=== PATIENT | female | born 1960 | race Caucasian/White ===

== ENCOUNTER 2018-01-22 21:25 | Emergency (ER) | payer BC ==
[2018-01-22 21:40] VITALS: PULSE 101
[2018-01-22] MEDS ORDERED: Sodium Chloride 0.9% 1000 ML 1,000 ML IV STA (21:45)
--- NOTE | 2018-01-22 21:51 | ERPHSYRPT ---
- History of Present Illness Time Seen by Provider: 01/22/18 21:41 Source: patient Exam Limitations: no limitations Patient Subjective Stated Complaint: Pt arrives to ER with urinary pressure/ frequency/dysuria for 1 week. Is normally able to self treat UTI with drinking lots of water. Developed back lower right back pain Saturday, was seen at Urgent care and started Macrobid Saturday. Developed fever yesterday morning as high as 101.8F. Has been treating fever with Aleve. Pt also taking Azo and increasing fluid intake, states pressure and dysuria are resolved, frequency is still present but relates to increased fluid intake. Triage Nursing Assessment: see above Physician History: Pt started c/o dysuria about one week ago, she was seen at an urgent care clinic 2 days ago, started on PO Macrobid. She developed chills and fever yesterday, temp. was 102.7F today, she took Advil at 19:30 PM. She denies abdominal or back pain, nausea, vomiting, diarrhea, other complaints, than generalized body aches and fever, dysuria. She went back to the urgent care clinic and was directed here. Timing/Duration: week(s) (1) Activites at Onset: none Quality: aching Onset Location: other (denies) Pain Radiation: none Severity of Pain-Max: none Severity of Pain-Current: none Prior abdominal problems: UTI Sexual intercourse history: non-contributory Modifying Factors: Improves With: nothing Associated Symptoms: fever, chills, urinary frequency Allergies/Adverse Reactions: sulfamethoxazole [From Bactrim] Allergy (Verified 01/22/18 21:40) Vomiting trimethoprim [From Bactrim] Allergy (Verified 01/22/18 21:40) Vomiting Home Medications: Nitrofurantoin Monohyd/M-Cryst [Nitrofurantoin [place]-Mcr 100 mg] 100 mg PO BID [History] - Review of Systems Constitutional: Fever, Chills Genitourinary Symptoms: Dysuria, Frequency All Other Systems: Reviewed and Negative - Past Medical History Pertinent Past Medical History: Yes - Past Surgical History Past Surgical History: Yes - Social History Smoking Status: Never smoker Exposure to second hand smoke: No Drug Use: none Patient Lives Alone: No - Female History Hx Now: No - Nursing Vital Signs Nursing Vital Signs: Initial Vital Signs Temperature 99.2 F 01/22/18 21:30 Pulse Rate 101 H 01/22/18 21:30 Respiratory Rate 18 01/22/18 21:30 Blood Pressure 133/77 01/22/18 21:30 O2 Sat by Pulse Oximetry 97 01/22/18 21:30 Pain Scale Pain Intensity 0 - Physical Exam General Appearance: no apparent distress Eye Exam: eyes nml inspection Ears, Nose, Throat Exam: normal ENT inspection, moist mucous membranes Neck Exam: normal inspection, non-tender, supple, No JVD Respiratory Exam: normal breath sounds, lungs clear, airway intact Cardiovascular Exam: regular rate/rhythm, normal heart sounds, normal peripheral pulses, No murmur Gastrointestinal/Abdomen Exam: soft, normal bowel sounds, No tenderness, No distention, No mass, No guarding, No rebound, No organomegaly Pelvic Exam: not done Back Exam: normal inspection, No CVA tenderness Extremity Exam: normal inspection, No calf tenderness, No pedal edema Neurologic Exam: alert, oriented x 3, normal mood/affect Skin Exam: normal color, warm, dry, No rash Lymphatic Exam: No adenopathy SpO2 Interpretation: normal SpO2: 97 Oxygen Delivery: Room Air - Course Nursing assessment & vital signs reviewed: Yes Ordered Tests: Active Orders 24 hr Category Date Time Status IV Insertion STAT Care 01/22/18 21:45 Active BLOOD CULTURE Stat Lab 01/22/18 22:00 Received CBC W DIFF Stat Lab 01/22/18 21:45 Completed CMP Stat Lab 01/22/18 21:45 Completed CULTURE,URINE Stat Lab 01/22/18 22:30 Received Lactic Acid Stat Lab 01/22/18 21:45 Completed UA W/ MICROSCOPIC Stat Lab 01/22/18 22:30 Completed Medication Summary Generic Name Dose Route Start Last Admin Trade Name Freq PRN Reason Stop Dose Admin Ceftriaxone Sodium/Dextrose 1 g in 50 mls @ 100 mls/hr 01/22/18 22:36 22:43 Rocephin 1 Gm-D5w 50 Ml Bag IV 01/22/18 23:05 100 mls/hr STAT STA 100 mls/hr Administration Discontinued Medications Generic Name Dose Route Start Last Admin Trade Name Freq PRN Reason Stop Dose Admin Sodium Chloride 1,000 mls @ 999 mls/hr 01/22/18 21:45 01/22/18 21:57 Sodium Chloride 0.9% 1000 Ml IV 01/22/18 22:45 999 mls/hr .Q1H1M STA Administration Sodium Chloride Confirm 01/22/18 21:54 Sodium Chloride 0.9% 1000 Ml Administered 01/22/18 21:55 Dose 1,000 mls @ ud .ROUTE .STK-MED ONE Ceftriaxone Sodium/Dextrose Confirm 01/22/18 22:39 Rocephin 1 Gm-D5w 50 Ml Bag Administered 01/22/18 22:40 Dose 1 g in 50 mls @ ud IV .STK-MED ONE Lab/Rad Data: Laboratory Result Diagrams 01/22/18 21:45 01/22/18 21:45 Laboratory Results 01/22/18 01/22/18 01/22/18 Range/Units 22:30 21:45 21:45 WBC (4.0-10.5) K/mm3 RBC (4.1-5.4) M/mm3 Hgb (12.0-16.0) gm/dl Hct (35-47) % MCV (78-100) fl MCH (26-32) pg MCHC (32-36) g/dl RDW (11.5-14.0) % Plt Count (150-450) K/mm3 MPV (6-9.5) fl Gran % (36.0-66.0) % Eos # (Auto) (0-0.5) Absolute Lymphs (auto) (1.0-4.6) Absolute Monos (auto) (0.0-1.3) Lymphocytes % (24.0-44.0) % Monocytes % (0.0-12.0) % Eosinophils % (0.00-5.0) % Basophils % (0.0-0.4) % Absolute Granulocytes (1.4-6.9) Basophils # (0-0.4) Sodium 138 (137-145) mmol/L Potassium 3.8 (3.5-5.1) mmol/L Chloride 100 (98-107) mmol/L Carbon Dioxide 29 (22-30) mmol/L Anion Gap 13.8 (5-15) MEQ/L BUN 13 (7-17) mg/dL Creatinine 1.02 (0.52-1.04) mg/dL Estimated GFR 59.2 ML/MIN Glucose 108 H (74-106) mg/dL Lactic Acid 0.6 (0.4-2.0) Calcium 9.9 (8.4-10.2) mg/dL Total Bilirubin 0.60 (0.2-1.3) mg/dL AST 25 (14-36) U/L ALT 13 (0-35) U/L Alkaline Phosphatase 90 (38-126) U/L Serum Total Protein 7.1 (6.3-8.2) g/dL Albumin 4.1 (3.5-5.0) g/dL Ur Collection Type CLEAN CATCH Urine Color YELLOW (YELLOW) Urine Appearance CLEAR (CLEAR) Urine pH 7.0 (5-6) Ur Specific [place] 1.005 (1.005-1.025) Urine Protein NEGATIVE (Negative) Urine Ketones SMALL (NEGATIVE) Urine Blood TRACE NON-HEM (0-5) Juan Luis/ul Urine Nitrite POSITIVE (NEGATIVE) Urine Bilirubin NEGATIVE (NEGATIVE) Urine Urobilinogen NORMAL (0-1) mg/dL Ur Leukocyte Esterase NEGATIVE (NEGATIVE) Urine Microscopic RBC 2-5 (0-2) /HPF Urine Microscopic WBC 0-2 (0-5) /HPF Ur Epithelial Cells FEW (FEW) /HPF Urine Bacteria RARE (NEGATIVE) /HPF Urine Culture Reflexed YES (NO) Urine Glucose NEGATIVE (NEGATIVE) mg/dL Specimen Received 01/22/18 2230 01/22/18 Range/Units 21:45 WBC 8.9 (4.0-10.5) K/mm3 RBC 3.97 L (4.1-5.4) M/mm3 Hgb 12.0 (12.0-16.0) gm/dl Hct 36.3 (35-47) % MCV 91.4 (78-100) fl MCH 30.2 (26-32) pg MCHC 33.1 (32-36) g/dl RDW 13.9 (11.5-14.0) % Plt Count 163 (150-450) K/mm3 MPV 9.6 H (6-9.5) fl Gran % 68.3 H (36.0-66.0) % Eos # (Auto) 0.03 (0-0.5) Absolute Lymphs (auto) 1.63 (1.0-4.6) Absolute Monos (auto) 1.14 (0.0-1.3) Lymphocytes % 18.4 L (24.0-44.0) % Monocytes % 12.8 H (0.0-12.0) % Eosinophils % 0.3 (0.00-5.0) % Basophils % 0.2 (0.0-0.4) % Absolute Granulocytes 6.06 (1.4-6.9) Basophils # 0.02 (0-0.4) Sodium (137-145) mmol/L Potassium (3.5-5.1) mmol/L Chloride (98-107) mmol/L Carbon Dioxide (22-30) mmol/L Anion Gap (5-15) MEQ/L BUN (7-17) mg/dL Creatinine (0.52-1.04) mg/dL Estimated GFR ML/MIN Glucose (74-106) mg/dL Lactic Acid (0.4-2.0) Calcium (8.4-10.2) mg/dL Total Bilirubin (0.2-1.3) mg/dL AST (14-36) U/L ALT (0-35) U/L Alkaline Phosphatase (38-126) U/L Serum Total Protein (6.3-8.2) g/dL Albumin (3.5-5.0) g/dL Ur Collection Type Urine Color (YELLOW) Urine Appearance (CLEAR) Urine pH (5-6) Ur Specific [place] (1.005-1.025) Urine Protein (Negative) Urine Ketones (NEGATIVE) Urine Blood (0-5) Juan Luis/ul Urine Nitrite (NEGATIVE) Urine Bilirubin (NEGATIVE) Urine Urobilinogen (0-1) mg/dL Ur Leukocyte Esterase (NEGATIVE) Urine Microscopic RBC (0-2) /HPF Urine Microscopic WBC (0-5) /HPF Ur Epithelial Cells (FEW) /HPF Urine Bacteria (NEGATIVE) /HPF Urine Culture Reflexed (NO) Urine Glucose (NEGATIVE) mg/dL Specimen Received - Progress Progress: improved Air Movement: good Progress Note: 01/22/18 23:02 I discussed our results with patient and her , she has been afebrile, stable, denies pain or nausea. She is being discharged instructed to rest x 2-3 days, drink plenty of fluids, follow up with her physician, and return if severe pain, vomiting, fever> 102 F. She was administered 1 g Rocephine iv, and discharged on PO Keflex x 7 days. Blood Culture(s) Obtained: Yes Antibiotics given: Yes Counseled pt/family regarding: lab results, diagnosis, need for follow-up - Departure Time of Disposition: 23:03 Departure Disposition: Home Clinical Impression: UTI (urinary tract infection) Qualifiers: Urinary tract infection type: site unspecified Hematuria presence: without hematuria Qualified Code(s): N39.0 - Urinary tract infection, site not specified Condition: Stable Critical Care Time: No Referrals: WILLIAN VEGAS FNP [Primary Care Provider] - Instructions: Urinary Tract Infection, Adult (DC) Additional Instructions: Rest x 2-3 days, drink plenty of fluids, follow up with your doctor in 2-3 days , return if severe pain, vomiting, fever> 103 F! Prescriptions: Cephalexin Mh 500 mg [Keflex 500 mg] 500 mg PO Q6H #28 capsule
[2018-01-22] MEDS ORDERED: Sodium Chloride 0.9% 1000 ML 1,000 ML ONE (21:54)
[2018-01-22 21:59] LABS: BASOPHIL % 0.2 % (0.0-0.4); Basophil (Absolute #) 0.02 (0-0.4); Eosinophil % 0.3 % (0.00-5.0); Eosinophil (Absolute #) 0.03 (0-0.5); Granulocyte Absolute (ANC) 6.06 (1.4-6.9); Granulocytes % 68.3 % (36.0-66.0); Hematocrit 36.3 % (35-47); Lymphocyte (Absolute #) 1.63 (1.0-4.6); Lymphocytes % 18.4 % (24.0-44.0); Mean Cell Volume 91.4 fl (78-100); Mean Corpuscular Hemoglobin 30.2 pg (26-32); Mean Corpuscular Hgb Concent. 33.1 g/dl (32-36); Mean Platelet Volume 9.6 fl (6-9.5); Monocyte (Absolute #) 1.14 (0.0-1.3); Monocytes % 12.8 % (0.0-12.0); Platelet Count 163 K/mm3 (150-450); Red Blood Count 3.97 M/mm3 (4.1-5.4); Red Cell Distribution Width 13.9 % (11.5-14.0); White Blood Count 8.9 K/mm3 (4.0-10.5)
[2018-01-22 22:15] LABS: ALBUMIN 4.1 g/dL (3.5-5.0); ANION GAP 13.8 MEQ/L (5-15); BILIRUBIN,TOTAL 0.6 mg/dL (0.2-1.3); Calcium 9.9 mg/dL (8.4-10.2); Creatinine 1 1.02 mg/dL (0.52-1.04); Potassium 3.8 mmol/L (3.5-5.1); Total Protein 7.1 g/dL (6.3-8.2)
[2018-01-22] MEDS ORDERED: ROCEPHIN 1 Gm-D5w 50 ml Bag** 1 G/50 ML IVPB IV STA (22:36)
[2018-01-22] MEDS ORDERED: ROCEPHIN 1 Gm-D5w 50 ml Bag** 1 G/50 ML IVPB IV ONE (22:39)
[2018-01-22 22:53] LABS: Appearance CLEAR (CLEAR); Bilirubin NEGATIVE (NEGATIVE); Blood TRACE NON-HEM Ery/ul (0-5); Glucose NEGATIVE (NEGATIVE); Ketones SMALL (NEGATIVE); Leukocyte Esterase NEGATIVE (NEGATIVE); Nitrite POSITIVE (NEGATIVE); Protein,Urine Dip NEGATIVE (Negative); Specific Gravity 1.005 (1.005-1.025); Urobilinogen NORMAL mg/dL (0-1)
[2018-01-22 22:54] LABS: Bacteria RARE /HPF (NEGATIVE); Epithelial Cells FEW /HPF (FEW); WBC 0-2 /HPF (0-5)
[2018-01-22 23:17] VITALS: BP 99/68; O2SAT 95
== END 2018-01-22 23:17 | disposition home or self-care (01) ==
LOC: ED 21:25
DX: N39.0 Urinary tract infection, site not specified (principal)
CPT/HCPCS: 36000; 36415; 80053; 81000; 83605; 85025; 87040; 87086; 96360; 96365; 96374; 96375; 99284; J0696

== ENCOUNTER 2018-12-29 09:09 | Day surgery (SDC) | payer BC ==
--- NOTE | 2018-12-29 07:49 | HP ---
DATE OF SURGERY: 12/29/2018 HISTORY OF PRESENT ILLNESS: The patient is a 58 year-old with no prior colonoscopy, no bloody stools. Family history is negative for inflammatory bowel disease or colon cancer. No pain. There is question whether she had a positive Cologuard but she has not had a prior colonoscopy so she is due for a screening colonoscopy for evaluation. PAST MEDICAL HISTORY: She denies any chronic illnesses. PAST SURGICAL HISTORY: Right ovary removed in the past. MEDICATIONS: None. ALLERGIES: BACTRIM. FAMILY HISTORY: Negative. SOCIAL HISTORY: No smoking or alcohol abuse. REVIEW OF SYSTEMS: Fourteen systems reviewed per admission assessment. No chest pain or palpitations, other systems negative or noncontributory as above and per preadmission questionnaire. PHYSICAL EXAMINATION: GENERAL: No acute distress. HEENT: Sclerae nonicteric. NECK: No JVD. CHEST: Equal excursion, nonlabored breathing. CVS: Regular rate and rhythm. ABDOMEN: Soft. No peritoneal signs. EXTREMITIES: No significant edema. NEURO: Alert, oriented, moving extremities symmetrically. No gross motor deficits noted. RECTAL: Deferred timed to endoscopy exam. IMPRESSION: Need for screening colonoscopy. I feel the patient is a candidate. We explained all the above procedure risks but not limited to bleeding or infection, risk of bowel injury or perforation possibly requiring open procedure, risk of missed or nondiagnosis or incomplete exam possibly requiring barium enema, other studies or procedures, general risk of anesthesia or sedation, risk of bowel prep, postoperative risk of nausea or cramping but not limited to. She understands and agrees to the planned procedure, will proceed with outpatient screening colonoscopy.
[2018-12-29] MEDS ORDERED: Lactated Ringers 1,000 ML IV ONE ×2 (09:29→11:55)
[2018-12-29] MEDS ORDERED: Lactated Ringers 1,000 ML IV SCH (09:30)
[2018-12-29] MEDS ORDERED: MEFOXIN 2 GM PREMIX** 2 GM/50 ML ML IV SCH (10:00)
[2018-12-29] MEDS ORDERED: DIPRIVAN 200 MG/20 ML IV ONE ×2 (11:44→11:53)
[2018-12-29 13:14] VITALS: BP 115/76; PULSE 71; O2SAT 100
--- NOTE | 2018-12-29 13:34 | OP ---
SURGERY DATE/TIME: 12/29/2018 1148 PREOPERATIVE DIAGNOSES: 1) Need for screening colonoscopy. 2) Question of positive Cologuard. POSTOPERATIVE DIAGNOSES: 1) Small raised lesion versus early polyp, hyperplastic lesion in the rectum. 2) Raised lesion ascending colon. 3) Two tiny diverticula. PROCEDURES: 1) Colonoscopy to terminal ileum. 2) Retrograde ileoscopy. 3) Hot biopsy piecemeal removal small vague raised lesion on fold ascending colon. 4) Hot biopsy removal 3 or 4 very small early polyps versus hyperplastic lesions, raised lesions in the rectum. SURGEON: Dr. Hernán Matias. ANESTHESIA: MAC. ESTIMATED BLOOD LOSS: Minimal. INDICATIONS: As noted above. Risks and benefits explained in detail but not limited to and consent obtained. DESCRIPTION OF PROCEDURE AND FINDINGS: The patient is taken to the operating room. MAC anesthesia introduced. After official time out and no disagreement with planned procedure, digital rectal exam did not reveal any rectal masses but did have some minimal internal hemorrhoids. Video colonoscope inserted and passed up through the tortuous sigmoid, descending, transverse, ascending colon. Prep overall was good. The bowel was a little sticky so took a little bit of time but navigated through, this was somewhat tortuous. I was able to reach the cecum and then passed up through terminal ileum. Retrograde ileoscopy performed which was grossly unremarkable. The scope is slowly and carefully withdrawn. There was a vague raised area on a fold in the ascending colon whether this is an early start of a polyp or not was unclear. It was removed with piecemeal fashion with brief bursts of cautery and hot biopsy forceps. Good hemostasis noted. The scope was slowly and carefully withdrawn through the colon over the next ten minutes. Again, prep overall was good. There was a little bit of liquidy stool over in the proximal right colon but otherwise overall prep was fairly good. The scope is slowly and carefully withdrawn. She had some tiny few diverticula but no large diverticula. There was no evidence of any large polyps, masses or obstructing lesions on slow careful withdrawal of the scope through the colon. She did have three or four little small tiny raised lesions versus hyperplastic lesions in the rectum that were early polyps removed with hot biopsy forceps and brief bursts of cautery. Good hemostasis noted. The scope was withdrawn. Patient tolerated the procedure well. There was no evidence of any large polyps, masses or obstructing lesions. Findings discussed with the family out in the waiting area.
== END 2018-12-29 13:21 | disposition home or self-care (01) ==
LOC: SDC 09:09
PROVIDERS: ATTEND Surgery
DX: Z12.11 Encounter for screening for malignant neoplasm of colon (principal); K57.30 Diverticulosis of large intestine without perforation or abscess without bleeding; D12.2 Benign neoplasm of ascending colon; D12.8 Benign neoplasm of rectum
CPT/HCPCS: J2704